=== PATIENT | female | born 1965 | race Hispanic/Latino ===

== ENCOUNTER 2020-01-29 18:39 | Inpatient (IN) | payer BC, OTHER ==
[~2020-01-29 18:39] MED LIST: Iopamidol 370 76% 100 ML VIAL ONE
[2020-01-29 19:32] LABS: #Basophils 0.1 thou/uL (0.0-0.2); #Eosinphils 0.1 thou/uL (0.0-0.7); #Lymphocytes 2.1 thou/uL (1.20-3.40); #Monocytes 0.6 thou/uL (0.11-0.59); #Neutrophils 5.1 thou/uL (1.40-6.50); %Basophils 0.8 % (0.0-1.0); %Monocytes 7.9 % (0.0-10.0); %Neutrophils 64.3 % (42.0-75.0); Hemoglobin 13.6 g/dL (12.0-16.0); Mean Corpuscular HGB CONC 33.9 g/dL (32.0-36.0); Mean Corpuscular Hemoglobin 29.8 pg (27.0-31.0); Mean Corpuscular Volume 88.1 fL (78.0-98.0); Mean Platelet Volume 6.8 fL (7.4-10.4); Platelet Count 317 thou/uL (130-400); RBC Distribution Width 12.8 % (11.5-14.5); Red Blood Cell (RBC) Count 4.56 mill/uL (4.20-5.40); White Blood Cell (WBC) Count 7.9 thou/uL (4.8-10.8)
[2020-01-29 19:56] LABS: ALT (SGPT) 105 U/L (8-55); AST (SGOT) 67 U/L (5-34); Alkaline Phosphatase 84 U/L (40-110); Anion Gap 18 mmol/L (10-20); BUN (Urea Nitrogen) 15 mg/dL (9.8-20.1); Bilirubin, Total 0.5 mg/dL (0.2-1.2); CK (CPK) 130 U/L (29-168); Calc. Creatinine Clearance 0 mL/min (70-130); Carbon Dioxide 22 mmol/L (22-29); Chloride 101 mmol/L (98-107); Estimated GFR-MDRD 77; Globulin 2.8 g/dL (2.4-3.5); Glucose 112 mg/dL (70-105); Potassium 3.5 mmol/L (3.5-5.1); Protein, Total 6.8 g/dL (6.0-8.3); Sodium 137 mmol/L (136-145)
[2020-01-29] MEDS ORDERED: Fentanyl 100 MCG/2 ML VIAL ONE (20:45)
[2020-01-29] MEDS ORDERED: Aspirin Chewable 81 MG TAB ONE (20:47)
[2020-01-29] MEDS ORDERED: Ondansetron PF 4 MG/2 ML Vial ONE (20:56)
--- NOTE | 2020-01-29 21:36 | CT ---
CT BRAIN WITHOUT CONTRAST CT ANGIOGRAM GREAT VESSELS NECK WITH IV CONTRAST AND 3D MIP RECONSTRUCTIONS CT ANGIOGRAM BRAIN WITH IV CONTRAST AND 3D MIP RECONSTRUCTIONS 01/29/20 PROVIDED CLINICAL HISTORY: Difficulty speaking, right sided facial droop and right sided weakness. FINDINGS: No comparisons. The ventricular system appears normal in size and morphology. There is no evidence for intracranial h emorrhage or mass effect. Focal areas of loss of arana-white differentiation and white matter hypodens ity are seen involving the anterior distribution of the right MCA. Arana-white differentiation appears otherwise preserved. The extracranial soft tissues and osseous structures appear unremarkable. There is a common origin of the innominate and left common carotid arteries. There is occlusion of th e right internal carotid artery throughout its cervical and petrous segments. There is some contrast present within the cavernous segment and it is normally opacified in its supraclinoid segment. The gr eat vessels of the neck demonstrate an otherwise unremarkable CT angiographic appearance. The intracr anial circulation demonstrates an otherwise normal CT angiographic appearance. IMPRESSION: 1. No evidence for intracranial hemorrhage or mass effect. 2. Anterior right MCA distribution infarctions. 3. Occlusion of the right ICA as described. 4. Findings discussed with Dr. Hearn 8:42 p.m., 01/29/20. Code CR POS: JAMIE
[2020-01-29] MEDS ORDERED: hydrALAZINE 20 MG/ML VIAL SLOW IVP PRN (22:42)
[2020-01-29] MEDS ORDERED: Labetalol HCl 100 MG/20 ML VIAL SLOW IVP PRN (22:42)
[2020-01-29] MEDS ORDERED: HumaLOG 300 UNITS/3 ML VIAL SC PRN (22:43)
[2020-01-29] MEDS ORDERED: Dextrose 5% in Water 1,000 ML IV PRN (22:43)
[2020-01-29] MEDS ORDERED: Dextrose 50% Abboject 50 ML SYRINGE SLOW IVP PRN (22:43)
[2020-01-29] MEDS ORDERED: Promethazine HCl 12.5 MG in Sodium Chloride 0.9% 50 ML IVPB PRN (22:44)
[2020-01-29] MEDS ORDERED: Ondansetron PF 4 MG/2 ML Vial IVP PRN (22:44)
[2020-01-29] MEDS ORDERED: Acetaminophen 325 MG TAB PO PRN (22:44)
--- NOTE | 2020-01-29 22:45 | PDOC.HHP ---
Hospitalist HPI - History of Present Illness Facial droop History of Present Illness: Patient is a 55 year old female with PMH HTN, lupus who presents to ED for R facial droop and slurred speech which began approximately 30 hours ago. Patient developed sudden R sided facial droop and slurred speech yesterday mid-day. She has been having difficulty speaking, denies numbness, seizure. She reports some peripheral L eye visual defects. In ED, NIHSS 3, EKG NSR, CTA imaging concerning for acute ischemic stroke in R MCA distribution, unfortunately patient out of tPA window, given aspirin and admitted for further stroke workup and care. Hospitalist ROS - Review of Systems Constitutional: denies: fever, chills, sweats, weakness, malaise, other Eyes: denies: pain, vision change, conjunctivae inflammation, eyelid in flammation, redness, other ENT: denies: ear pain, ear discharge, nose pain, nose discharge, nose congestion, mouth pain, mouth swelling, throat pain, throat swelling, other Respiratory: denies: cough, dry, shortness of breath, hemoptysis, SOB with ex certion, pleuritic pain, sputum, wheezing, other Cardiovascular: denies: chest pain, palpitations, orthopnea, paroxysmal noc. dyspnea, edema, light headedness, other Gastrointestinal: denies: nausea, vomiting, abdominal pain, diarrhea, constipation, melena, hematochezia, other Genitourinary: denies: dysuria, frequency, incontinence, hematuria, retention, other Musculoskeletal: denies: neck pain, shoulder pain, arm pain, back pain, hand pain, leg pain, foot pain, other Skin: denies: rash, lesions, michael, bruising, other Neurological: reports: weakness (per HPI), change in speech. denies: numbness, incoordination, confusion, seizures, other All other systems reviewed; all pertinent +/- noted in HPI/Subj - Medication Medications: lisinopril TABLET : Strength - 10 mg : ORAL Patient Dose: 5 mg Oral once a day. pantoprazole oral TABLET, DELAYED RELEASE (ENTERIC COATED) : Strength - 20 mg : ORAL Patient Dose: 40 mg Oral once a day. Hospitalist History - Past Medical History Other Medical History: HTN lupus - Past Surgical History Past Surgical History: reports: no pertinent history - Family History Family History: reports: no pertinent history - Social History Smoking Status: Never smoker Alcohol: reports: None Drugs: reports: none - Exam General Appearance: NAD, awake alert Eye: PERRL, anicteric sclera ENT: normocephalic atraumatic, no oropharyngeal lesions, moist mucosa Neck: supple, symmetric, no JVD, no thyromegaly, no lymphadenopathy, no carotid bruit Heart: RRR, no murmur, no gallops, no rubs, normal peripheral pulses Respiratory: CTAB, no wheezes, no rales, no ronchi, normal chest expansion, no tachypnea, normal percussion Gastrointestinal: soft, non-tender, non-distended, normal bowel sounds, no palpable masses, no hepatomegaly, no splenomegaly, no bruit Extremities: no cyanosis, no clubbing, no edema Skin: normal turgor, no lesions, no rashes Neurological: facial droop, speech deficit Neurological - other findings: reduced muscle strength 4/5 LUE, R facial droop, sensation intact Musculoskeletal: normal tone, normal strength, no muscle wasting Psychiatric: normal affect, normal behavior, A&O x 3 Hospitalist Results - Labs Result Diagrams: 01/29/20 19:25 01/29/20 19:25 Lab results: WBC 7.9 thou/uL (4.8-10.8) 01/29/20 19:25 Hgb 13.6 g/dL (12.0-16.0) 01/29/20 19:25 Hct 40.2 % (36.0-47.0) 01/29/20 19:25 MCV 88.1 fL (78.0-98.0) 01/29/20 19:25 Plt Count 317 thou/uL (130-400) 01/29/20 19:25 Neutrophils % 64.3 % (42.0-75.0) 01/29/20 19:25 Sodium 137 mmol/L (136-145) 01/29/20 19:25 Potassium 3.5 mmol/L (3.5-5.1) 01/29/20 19:25 Chloride 101 mmol/L (98-107) 01/29/20 19:25 Carbon Dioxide 22 mmol/L (22-29) 01/29/20 19:25 BUN 15 mg/dL (9.8-20.1) 01/29/20 19:25 Creatinine 0.77 mg/dL (0.6-1.1) 01/29/20 19:25 Glucose 112 mg/dL (70-105) H 01/29/20 19:25 Calcium 9.0 mg/dL (7.8-10.44) 01/29/20 19:25 Total Bilirubin 0.5 mg/dL (0.2-1.2) 01/29/20 19:25 AST 67 U/L (5-34) H 01/29/20 19:25 ALT 105 U/L (8-55) H 01/29/20 19:25 Alkaline Phosphatase 84 U/L (40-110) 01/29/20 19:25 Creatine Kinase 130 U/L (29-168) 01/29/20 19:25 Troponin I Less than 0.010 ng/mL (< 0.028) 01/29/20 19:25 Serum Total Protein 6.8 g/dL (6.0-8.3) 01/29/20 19:25 Albumin 4.0 g/dL (3.5-5.0) 01/29/20 19:25 Additional comment: VITAL SIGNS Wed Jan 29, 2020 21:56 CARLITO Mcclure, Yola Santamaria BP: 161/73 Pulse: 98 Resp: 18 Temp: 98.5 (Oral) Pain: 5 O2 sat: 98 on (Room Air) Time: 01/29/2020 21:56. labs, imaging reports, ED documents reviewed. - EKG Interpretation EKG: NSR 99 bpm, no acute ST changes or AVB. Hospitalist H&P A/P - Plan Plan: Patient is a 55 year old female with PMH HTN, lupus who presents to ED for R facial droop and slurred speech which began approximately 30 hours prior to arrival. # acute R MCA ischemic stroke Patient developed sudden R sided facial droop and slurred speech yesterday mid- day. She reports some peripheral L eye visual defects. In ED, NIHSS 3, EKG NSR, CTA imaging concerning for acute ischemic stroke in R MCA distribution, unfortunately patient out of tPA window, given aspirin and admitted for further stroke workup and care. exam concerning for some LUE mild weakness but still 4/5 strength. - admit to stroke unit - stroke order set, permissive HTN, consult neurology/stroke team, ASA, statin # R ICA occlusion - consult vascular surgery, antiplatelet as above # HTN - permissive HTN # SLE - outpatient follow up recommended DVT/GI ppx
[2020-01-30 00:13] VITALS: BMI 35.1
[2020-01-30 04:57] LABS: #Eosinphils 0.1 thou/uL (0.0-0.7); #Lymphocytes 1.9 thou/uL (1.20-3.40); #Monocytes 0.5 thou/uL (0.11-0.59); #Neutrophils 2.7 thou/uL (1.40-6.50); %Basophils 0.5 % (0.0-1.0); %Eosinophils 1.2 % (0.0-10.0); %Monocytes 9.2 % (0.0-10.0); %Neutrophils 52.2 % (42.0-75.0); Hemoglobin 12.8 g/dL (12.0-16.0); Mean Corpuscular HGB CONC 32.3 g/dL (32.0-36.0); Mean Corpuscular Hemoglobin 28.1 pg (27.0-31.0); Mean Corpuscular Volume 86.9 fL (78.0-98.0); Mean Platelet Volume 7.1 fL (7.4-10.4); Platelet Count 322 thou/uL (130-400); RBC Distribution Width 12.9 % (11.5-14.5); Red Blood Cell (RBC) Count 4.57 mill/uL (4.20-5.40); White Blood Cell (WBC) Count 5.2 thou/uL (4.8-10.8)
[2020-01-30 05:11] LABS: Hemoglobin A1c 6.4 % (4.0-6.0)
[2020-01-30 05:28] LABS: Anion Gap 15 mmol/L (10-20); BUN (Urea Nitrogen) 12 mg/dL (9.8-20.1); Calc. Creatinine Clearance 119 mL/min (70-130); Carbon Dioxide 23 mmol/L (22-29); Cardiac Risk 4.4 (Less than 4.5); Chloride 104 mmol/L (98-107); Cholesterol 219 mg/dl (< 200 Desired); Estimated GFR-MDRD 83; Glucose 114 mg/dL (70-105); HDL Cholesterol 50 mg/dL (>60 Neg Risk); LDL Cholesterol, Calculated 144 mg/dL; Potassium 3.6 mmol/L (3.5-5.1); Sodium 138 mmol/L (136-145); Triglycerides 126 mg/dL (Less than 150)
--- NOTE | 2020-01-30 06:57 | CON ---
DATE OF CONSULTATION: HISTORY OF PRESENT ILLNESS: This is a 55-year-old with a history of hypertension who has a 1 to 2-day history of initially headache on the right side, and then some facial asymmetry and slurred speech yesterday. Finally, was brought to the hospital. The daughter states that she was able to ambulate, used her left arm, although she appeared to be a little unsteady on her feet. Speech was somewhat difficult to understand. In the emergency room, she was found to have occlusion of her right internal carotid artery at the carotid bifurcation with no significant filling distally. She had evidence for anterior right middle cerebral artery distribution infarction. There was no significant atherosclerotic disease identified in the aortic arch or blood vessels of her cervical study. Cardiovascular risk factors include hypertension. She has no history of diabetes. Her blood sugars have been minimally elevated and her A1c on admission was slightly elevated at 6.4. She had a cholesterol of 219 with an HDL of 50. She is a nonsmoker. PAST SURGICAL HISTORY: Negative. PHYSICAL EXAMINATION: VITAL SIGNS: Height 5 feet 2 inches, weight 192, and BMI 35. GENERAL: Resting comfortably in bed, nonverbal during my evaluation as the daughter did most of the talking. NECK: She had no carotid bruits. CARDIAC: Regular rate and rhythm. No murmurs. LUNGS: Clear to auscultation. EXTREMITIES: Without edema with palpable pedal pulses. She has a good dock grader in her left arm and minimal weakness on elevation of her left leg from the bed. She has no obvious facial asymmetry this morning. At this time, she has a right internal carotid artery occlusion with minimal symptoms from her stroke presently. Given the fact that she has had what appears to be a rather limited stroke makes me suspicious, this was a slowly progressive occlusion over time allowing for collateral development rather than being an embolic stroke from the heart. In any event, a cardiac echo is needed to rule out a possible cardiac source such as myxoma and her left ventricular abnormalities. Her resting EKG is consistent with possible old inferior or anterior infarct. She probably would benefit from the addition of statin therapy to her home medications and this has been started. She is now on aspirin as well. I have had a long discussion this morning with the daughter, who is concerned that nothing can be done for her right internal carotid artery occlusion. I tried to explain several times this morning that once it occludes completely, there is no intervention to be done at this stage, and that the risk of future stroke on that side is quite low since her occlusion cannot get any worse than it is. The goals here forward should be risk factor control to minimize atherosclerotic disease in her left carotid artery, which at this time is clean as well as cardiac echo to evaluate any possible cardiac source for this stroke. Carotid ultrasound followup in a couple of years is probably warranted to track the left carotid artery. Job ID: [id number]
--- NOTE | 2020-01-30 08:58 | MRI ---
EXAM: MRI Brain WO Con PROVIDED CLINICAL HISTORY: Right-sided weakness. Stroke. COMPARISON: CT head and CTA head on 01/29/2020 FINDINGS: There is an area of restricted diffusion seen in the right anterior frontal lobe in the anterior divi laney of the right MCA compatible with acute infarction. No other areas of restricted diffusion are seen to suggest additional areas of acute infarction. Mild sulcal effacement is present in the region of the infarction. There are scattered punctate areas of increased FLAIR and T2-weighted signal intensity in the periven tricular white matter which are nonspecific but likely reflective of mild chronic small vessel ischemic changes. Septum pellucidum and third ventricle are on the midline. The ventricular system is normal in size, s hape, and position. There is absence of the right internal carotid artery flow-void compatible with occlusion of the righ t internal carotid artery which was seen on recent CTA exam. Incidentally noted is evidence of a partially empty sella turcica. Minimal mucosal thickening is seen in each sphenoid sinus and a few ethmoidal air cells. Orbits and r emainder of the skull base demonstrate a normal MRI appearance. IMPRESSION: 1. Acute anterior division right MCA infarction. 2. Occlusion of the right internal carotid artery. 3. Mild chronic small vessel ischemic changes.
[2020-01-30] MEDS ORDERED: Famotidine 20 MG TAB PO SCH (09:00)
[2020-01-30] MEDS ORDERED: Aspirin 81 mg Enteric Coated Tablet PO SCH (09:00)
[2020-01-30 12:10] LABS: SARS-CoV-2 MS2 Positive; SARS-CoV-2 N Gene Negative; SARS-CoV-2 S Gene Negative; SARS-CoV-2 by NAA Not Detected (NotDetected); SARS-CoV-2 orf1ab Negative
[2020-01-30] MEDS ORDERED: Pantoprazole 40 MG VIAL IVP SCH (12:15)
[2020-01-30] MEDS ORDERED: Aspirin 300 MG Suppository PR SCH (12:15)
[2020-01-30] MEDS: Aspirin 325 mg Enteric Coated Tablet PO SCH (12:19)
[2020-01-30] MEDS: Enoxaparin Sodium 40 MG/0.4 ML SYRINGE SC SCH (12:19)
--- NOTE | 2020-01-30 12:38 | PDOC.HOSPP ---
- Subjective Encounter Date: 01/30/20 Encounter Time: 12:36 Subjective: pt up in bed no complains. Daughter at bedside. - Objective Vital Signs & Weight: Vital Signs (12 hours) Temp Pulse Pulse Pulse Resp BP BP 01/30/20 11:36 97.8 F 98 16 01/30/20 10:44 101 H 104 H 141/83 H 146/83 H 01/30/20 09:29 103 H 123/75 147/69 H 01/30/20 08:04 97.9 F 94 16 01/30/20 03:12 98.1 F 84 14 BP Pulse Ox 01/30/20 11:36 141/68 H 96 01/30/20 10:44 01/30/20 09:29 01/30/20 08:04 141/79 H 98 01/30/20 03:12 122/77 98 Weight Weight 192 lb 0.362 oz Result Diagrams: 01/30/20 04:30 01/30/20 04:30 Additional Labs: Accuchecks 01/30/20 05:39 POC Glucose 102 H Hospitalist ROS - Review of Systems Cardiovascular: denies: chest pain, palpitations, orthopnea, paroxysmal noc. dyspnea, edema, light headedness, other Gastrointestinal: denies: nausea, vomiting, abdominal pain, diarrhea, constipation, melena, hematochezia, other - Medication Medications: Active Medications Generic Name Dose Route Start Last Admin Trade Name Freq PRN Reason Stop Dose Admin Aspirin 325 mg 01/30/20 09:00 01/30/20 12:19 Aspirin 325 Mg Enteric Coated Tablet PO Not Given DAILY [facility] Enoxaparin Sodium 40 mg 01/30/20 09:00 01/30/20 12:19 Enoxaparin Sodium 40 Mg/0.4 Ml Syringe SC Not Given 0900 [facility] - Exam Neck: negative: supple, symmetric, no JVD, no thyromegaly, no lymphadenopathy, no carotid bruit, JVD Heart: negative: RRR, no murmur, no gallops, no rubs, normal peripheral pulses, irregular, diminshed peripheral pulses, murmur present, II/IV, III/IV Respiratory: negative: CTAB, no wheezes, no rales, no ronchi, normal chest expansion, no tachypnea, normal percussion, rales, rhonchi, tachypneic, wheezes Gastrointestinal: negative: soft, non-tender, non-distended, normal bowel sounds, no palpable masses, no hepatomegaly, no splenomegaly, no bruit, no guarding, no rigidity, tender to palpation, distended, diminished bowl sounds, voluntary guarding Extremities: 1+ LE edema Hosp A/P (1) Stroke Code(s): I63.9 - CEREBRAL INFARCTION, UNSPECIFIED Status: Acute (2) HTN (hypertension) Code(s): I10 - ESSENTIAL (PRIMARY) HYPERTENSION Status: Acute (3) Obesity Code(s): E66.9 - OBESITY, UNSPECIFIED Status: Acute - Plan pt on asa/statin. echo pending. occlusion of right carotid artery, no intervention pt's daughter updated. right mca stroke out of window for tpa.
--- NOTE | 2020-01-30 13:10 | CON ---
NEUROLOGY CONSULTATION DATE OF CONSULTATION: 01/30/2020 REASON FOR CONSULTATION: Altered mental status/stroke. HISTORY OF PRESENT ILLNESS: Ms. Hans Ramos is a 55-year-old female with medical history significant for hypertension and lupus, presented to the emergency room with right facial droop, slurred speech, and mild confusion, which started around 30 hours ago on 01/29/2020. The patient speaks Samoan. The history is taken with the help of the daughter. According to the daughter, she developed a sudden onset right-sided facial droop and slurred speech around mid day on 01/28/2020. She waited for the deficits to resolve, but she continued to have persistent deficits and having difficulty in speaking, so she decided to come to the emergency room for further evaluation. The patient also noted peripheral left eye visual deficit. In the emergency room, NIH Stroke Scale was 3. EKG showed normal sinus rhythm. CTA of the head showed occlusion of the right internal carotid artery and acute ischemic stroke in the right MCA distribution. She was given aspirin and admitted for further stroke workup. REVIEW OF SYSTEMS: Constitutional: denies: fever, chills, sweats, weakness, malaise, other Eyes: denies: pain, vision change, conjunctivae inflammation, eyelid inflammation, redness, other ENT: denies: ear pain, ear discharge, nose pain, nose discharge, nose congestion, mouth pain, mouth swelling, throat pain, throat swelling, other Respiratory: denies: cough, dry, shortness of breath, hemoptysis, SOB with excertion, pleuritic pain, sputum, wheezing, other Cardiovascular: denies: chest pain, palpitations, orthopnea, paroxysmal noc. dyspnea, edema, light headedness, other Gastrointestinal: denies: nausea, vomiting, abdominal pain, diarrhea, constipation, melena, hematochezia, other Genitourinary: denies: dysuria, frequency, incontinence, hematuria, retention, other Musculoskeletal: denies: neck pain, shoulder pain, arm pain, back pain, hand pain, leg pain, foot pain, other Skin: denies: rash, lesions, michael, bruising, other Neurological: reports: weakness (per HPI), change in speech. denies: numbness, incoordination, confusion, seizures, other All other systems reviewed; all pertinent +/- noted in HPI/Subj - Objective Vital Signs & Weight: Vital Signs (12 hours) Temp Pulse Pulse Pulse Resp BP BP 01/30/20 11:36 97.8 F 98 16 01/30/20 10:44 101 H 104 H 141/83 H 146/83 H 01/30/20 09:29 103 H 123/75 147/69 H 01/30/20 08:04 97.9 F 94 16 01/30/20 03:12 98.1 F 84 14 BP Pulse Ox 01/30/20 11:36 141/68 H 96 01/30/20 10:44 01/30/20 09:29 01/30/20 08:04 141/79 H 98 01/30/20 03:12 122/77 98 Weight Weight 192 lb 0.362 oz Additional Labs: Accuchecks 01/30/20 05:39 POC Glucose 102 H PHYSICAL EXAMINATION: Examination conducted with the help of the daughter who acted as an film processing shift supervisor since the patient speaks Samoan only. General Appearance: NAD, awake alert Eye: PERRL, anicteric sclera ENT: normocephalic atraumatic, no oropharyngeal lesions, moist mucosa Neck: supple, symmetric, no JVD, no thyromegaly, no lymphadenopathy, no carotid bruit Heart: RRR, no murmur, no gallops, no rubs, normal peripheral pulses Respiratory: CTAB, no wheezes, no rales, no ronchi, normal chest expansion, no tachypnea, normal percussion Gastrointestinal: soft, non-tender, non-distended, normal bowel sounds, no palpable masses, no hepatomegaly, no splenomegaly, no bruit Extremities: no cyanosis, no clubbing, no edema Skin: normal turgor, no lesions, no rashes Neurological -Mental status; the patient is alert and oriented to person, place, and time. The patient does have receptive aphasia and dysarthria. Follows commands intermittently, but per daughter, she has problem carrying a normal conversation and seems to be confused and forgetful at times. Cranial nerves 2 through 12 intact except 7 with right facial droop and 10 with dysarthria. Motor; muscle tone and bulk are normal. Strength, 4/5 in the left upper extremity and wrist 5/5. Sensory intact. Cerebellar, finger-nose testing slow on the left because of the weakness. Gait deferred due to patient's safety reasons. MEDICATIONS: 1. Lisinopril 5 mg once daily. 2. Pantoprazole 40 mg once a day. PAST MEDICAL HISTORY: 1. Hypertension. 2. Lupus. PAST SURGICAL HISTORY: No significant past surgical history. FAMILY HISTORY: No family history of stroke. SOCIAL HISTORY: Denies smoking, alcohol, or illegal drug use. DATA REVIEWED: I reviewed the labs, which were essentially unremarkable. EKG showed normal sinus rhythm. Head CT showed acute right MCA infarct. Lab results: WBC 7.9 thou/uL (4.8-10.8) 01/29/20 19:25 Hgb 13.6 g/dL (12.0-16.0) 01/29/20 19:25 Hct 40.2 % (36.0-47.0) 01/29/20 19:25 MCV 88.1 fL (78.0-98.0) 01/29/20 19:25 Plt Count 317 thou/uL (130-400) 01/29/20 19:25 Neutrophils % 64.3 % (42.0-75.0) 01/29/20 19:25 Sodium 137 mmol/L (136-145) 01/29/20 19:25 Potassium 3.5 mmol/L (3.5-5.1) 01/29/20 19:25 Chloride 101 mmol/L (98-107) 01/29/20 19:25 Carbon Dioxide 22 mmol/L (22-29) 01/29/20 19:25 BUN 15 mg/dL (9.8-20.1) 01/29/20 19:25 Creatinine 0.77 mg/dL (0.6-1.1) 01/29/20 19:25 Glucose 112 mg/dL (70-105) H 01/29/20 19:25 Calcium 9.0 mg/dL (7.8-10.44) 01/29/20 19:25 Total Bilirubin 0.5 mg/dL (0.2-1.2) 01/29/20 19:25 AST 67 U/L (5-34) H 01/29/20 19:25 ALT 105 U/L (8-55) H 01/29/20 19:25 Alkaline Phosphatase 84 U/L (40-110) 01/29/20 19:25 Creatine Kinase 130 U/L (29-168) 01/29/20 19:25 Troponin I Less than 0.010 ng/mL (< 0.028) 01/29/20 19:25 Serum Total Protein 6.8 g/dL (6.0-8.3) 01/29/20 19:25 Albumin 4.0 g/dL (3.5-5.0) 01/29/20 19:25 ASSESSMENT AND PLAN: (1) Stroke Code(s): I63.9 - CEREBRAL INFARCTION, UNSPECIFIED Status: Acute (2) HTN (hypertension) Code(s): I10 - ESSENTIAL (PRIMARY) HYPERTENSION Status: Acute (3) Obesity Code(s): E66.9 - OBESITY, UNSPECIFIED Status: Acute Ms. Danette Ramos is a 55-year-old female with medical history significant for hypertension and lupus, presented to the emergency room 30 hours post onset of symptoms of right facial droop, slurred speech, and left homonymous hemianopia. MRI of the brain reviewed and was consistent with acute infarction in the right MCA territory. CT angiogram of the neck showed right ICA occlusion. Vascular Surgery consulted. No surgical intervention. Continue anti-platelet as recommended by Vascular Surgery. Continue aspirin and high-intensity statin for secondary stroke prevention. Telemetry to rule out arrhythmias. Echocardiogram to evaluate for left ventricular ejection fraction. EEG to evaluate for intermittent confusion since the onset of symptoms to rule out underlying seizure activity. Neuro checks every 4 hours. Continue home medications. PT/OT/Speech. Continue medical management per primary team. DVT prophylaxis. We will continue to follow. Thank you for the consult. Job ID: [id number] MTDD
--- NOTE | 2020-01-30 15:21 | RAD ---
EXAM: XR Ba Swallow W/Speech Therap PROVIDED CLINICAL HISTORY: Dysphagia following cerebral infarction. Dysphagia, unspecified. COMPARISON: None FINDINGS: This examination was performed in conjunction with speech pathology. Varying consistencies of barium were administered during the exam. Patient demonstrates a few episodes of premature spill of contrast into the vallecula prior to initiation of the swallowing mechanism. Episode of penetration w as seen with nectar consistency by straw. A few episodes of minimal aspiration were present within liquid barium without appropriate cough reflex elicited. Fluoroscopy: Dose-0.71 moss centimeter squared Time-1 minute IMPRESSION: Minimal aspiration with thin liquid barium.
[2020-01-30] MEDS ORDERED: Atorvastatin Calcium 40 MG TAB PO SCH (21:00)
[2020-01-31] MEDS: Aspirin 325 mg Enteric Coated Tablet PO SCH (08:51)
[2020-01-31] MEDS: Enoxaparin Sodium 40 MG/0.4 ML SYRINGE SC SCH (08:51)
[2020-01-31] MEDS ORDERED: Lisinopril/Hydrochlorothiazide 20/25 mg Tablet PO SCH ×2 (10:35→10:45)
[2020-01-31] MEDS ORDERED: Iopamidol-370 76% 500 ML 1 ML ONE (11:35)
--- NOTE | 2020-01-31 13:07 | PDOC.NEUPN ---
- Subjective Encounter Date: 01/31/20 Subjective: Patient more awake today and denies any new complaints. EEG negative and MRI brain positive for acute infarction. - Objective Vital Signs & Weight: Vital Signs (12 hours) Temp Pulse Pulse Pulse Pulse Resp BP 01/31/20 11:45 98.8 F 108 H 20 01/31/20 09:44 103 H 110 H 105 H 202/91 H 01/31/20 09:00 01/31/20 08:00 99.3 F 90 14 01/31/20 03:46 99.0 F 114 H 18 BP BP BP Pulse Ox 01/31/20 11:45 180/83 H 95 01/31/20 09:44 197/91 H 201/102 H 01/31/20 09:00 192/93 H 01/31/20 08:00 155/72 H 95 01/31/20 03:46 125/72 94 L Weight Weight 192 lb 0.362 oz I&O: 01/30/20 01/31/20 02/01/20 06:59 06:59 06:59 Intake Total 30 Balance 30 Result Diagrams: 01/30/20 04:30 01/30/20 04:30 Additional Labs: Accuchecks 01/31/20 01/30/20 01/30/20 05:48 20:24 16:43 POC Glucose 135 H 124 H 105 H Radiology Reviewed by me: Yes EKG Reviewed by me: Yes ROS - Review of Systems Constitutional: denies: fever, chills, sweats, weakness, malaise, other Eyes: denies: pain, vision change, conjunctivae inflammation, eyelid inflammation, redness, other ENT: denies: ear pain, ear discharge, nose pain, nose discharge, nose congestion, mouth pain, mouth swelling, throat pain, throat swelling, other Respiratory: denies: cough, dry, shortness of breath, hemoptysis, SOB with excertion, pleuritic pain, sputum, wheezing, other Cardiovascular: reports: no pertinent history Gastrointestinal: denies: nausea, vomiting, abdominal pain, diarrhea, cons tipation, melena, hematochezia, other Genitourinary: denies: dysuria, frequency, incontinence, hematuria, retention, other Skin: denies: rash, lesions, michael, bruising, other Neurological: reports: weakness, numbness, change in speech - Medication Medications: Active Medications Generic Name Dose Route Start Last Admin Trade Name Robertq PRN Reason Stop Dose Admin Acetaminophen 650 mg 01/29/20 22:44 01/30/20 19:23 Acetaminophen 325 Mg Tab PO 650 mg Q4H PRN Administration Headache/Fever/Mild Pain (1-3) Aspirin 325 mg 01/30/20 09:00 01/31/20 08:51 Aspirin 325 Mg Enteric Coated Tablet PO 325 mg DAILY VERONICA Administration Atorvastatin Calcium 40 mg 01/30/20 21:00 01/30/20 21:26 Atorvastatin Calcium 40 Mg Tab PO 40 mg HS VERONICA Administration Enoxaparin Sodium 40 mg 01/30/20 09:00 01/31/20 08:51 Enoxaparin Sodium 40 Mg/0.4 Ml Syringe SC 40 mg 09 VERONICA Administration Lisinopril/HCTZ 1 tab 01/31/20 10:45 01/31/20 10:58 Lisinopril/Hydrochlorothiazide 20/25 Mg Tablet PO 01/31/20 14:00 1 tab NOW VERONICA Administration Ondansetron HCl 4 mg 01/29/20 22:44 01/30/20 19:23 Ondansetron Pf 4 Mg/2 Ml Vial IVP 4 mg Q6H PRN Administration Nausea/Vomiting use 1st Pantoprazole Sodium 40 mg 01/31/20 09:00 01/31/20 08:50 Pantoprazole 40 Mg Tab PO 40 mg DAILY VERONICA Administration - Exam General Appearance: awake alert Eye: PERRL, anicteric sclera ENT: normocephalic atraumatic Neck: supple Respiratory: CTAB Cardiovascular: RRR, no murmur Gastrointestinal: soft, non-tender Extremities: no cyanosis Skin: normal turgor Neurological: no new deficit Musculoskeletal: no muscle wasting PSYCH: normal affect, normal behavior, A&O x 3 Results - Labs Result Diagrams: 01/30/20 04:30 01/30/20 04:30 Lab results: WBC 5.2 thou/uL (4.8-10.8) 01/30/20 04:30 Hgb 12.8 g/dL (12.0-16.0) 01/30/20 04:30 Hct 39.7 % (36.0-47.0) 01/30/20 04:30 MCV 86.9 fL (78.0-98.0) 01/30/20 04:30 Plt Count 322 thou/uL (130-400) 01/30/20 04:30 Neutrophils % 52.2 % (42.0-75.0) 01/30/20 04:30 Sodium 138 mmol/L (136-145) 01/30/20 04:30 Potassium 3.6 mmol/L (3.5-5.1) 01/30/20 04:30 Chloride 104 mmol/L (98-107) 01/30/20 04:30 Carbon Dioxide 23 mmol/L (22-29) 01/30/20 04:30 BUN 12 mg/dL (9.8-20.1) 01/30/20 04:30 Creatinine 0.72 mg/dL (0.6-1.1) 01/30/20 04:30 Glucose 114 mg/dL (70-105) H 01/30/20 04:30 Calcium 9.0 mg/dL (7.8-10.44) 01/30/20 04:30 Total Bilirubin 0.5 mg/dL (0.2-1.2) 01/29/20 19:25 AST 67 U/L (5-34) H 01/29/20 19:25 ALT 105 U/L (8-55) H 01/29/20 19:25 Alkaline Phosphatase 84 U/L (40-110) 01/29/20 19:25 Creatine Kinase 130 U/L (29-168) 01/29/20 19:25 Troponin I Less than 0.010 ng/mL (< 0.028) 01/29/20 19:25 Serum Total Protein 6.8 g/dL (6.0-8.3) 01/29/20 19:25 Albumin 4.0 g/dL (3.5-5.0) 01/29/20 19:25 - Radiology Interpretation MRI - head Status: image reviewed by me, report reviewed by me Additional Comment: MRI brain consistent with acute infarction in the right MCA territory. PN A/P (1) Stroke Code(s): I63.9 - CEREBRAL INFARCTION, UNSPECIFIED Status: Acute (2) HTN (hypertension) Code(s): I10 - ESSENTIAL (PRIMARY) HYPERTENSION Status: Acute (3) AMS (altered mental status) Code(s): R41.82 - ALTERED MENTAL STATUS, UNSPECIFIED Status: Acute (4) Obesity Code(s): E66.9 - OBESITY, UNSPECIFIED Status: Acute - Plan 5-year-old female with a history significant for hypertension and obesity presented with acute onset left-sided weakness with speech deficit which is now improving. The patient also complained of dysphagia. MRI of the brain reviewed which was consistent with acute infarction in the right MCA territory. CTA of the neck showed right internal carotid artery occlusion 100%. Vascular surgery consult completed and advised no further intervention. Neurochecks every 4 hours. Permissive control of blood pressure at this time. Strict control of blood glucose. Altered mental status resolved most likely secondary to acute infarction. EEG reviewed and was negative for seizure activity. Continue aspirin and high intensity statin for secondary stroke prevention. 2D echo showed ejection fraction 60 to 65%. No thrombus or PFO. Continue telemetry. Continue home medications. PT/OT/speech. Barium swallow study completed. Minimal aspiration and speech is on board. Continue medical management per primary team. Plan discussed with the patient, the primary attending Dr. Kee and during MDR rounds.
--- NOTE | 2020-01-31 13:28 | CT ---
CTA OF THE CHEST AND ABDOMEN UTILIZING AN AORTIC DISSECTION PROTOCOL AND 3-D REFORMATTED IMAGING INDICATION: 55-year-old female with history of unequal blood pressure within both arms COMPARISON: None FINDINGS: Aorta: No acute aortic stenosis, occlusion or aneurysmal formation demonstrated. There are mild vascu lar calcifications seen involving the visualized vasculature. Artifact from contrast within the left subclavian and left axillary vein limits visualization of the left subclavian artery and left axillary artery. Central pulmonary artery: No central pulmonary embolus demonstrated. Additional thorax findings: There are mild subsegmental volume loss within both lower lobes. No enlar ged lymph nodes are evident. There are small lateral hernia. Additional abdominal findings: There is diffuse fatty liver. There is cholelithiasis. Adrenal glands and spleen are unremarkable. Both kidneys are normal appearing. Small and large bowel appear within normal limits. There is mild n arrowing involving the origin of the celiac artery. There is mild narrowing involving the origin of the right renal artery. Left renal artery appears patent. The SMA and AARON appear patent. Osseous structures: No acute osseous abnormality. IMPRESSION: 1. No appreciable aortic stenosis, occlusion or aneurysmal formation demonstrated. 2. Mild narrowing involving the origin of the celiac and proximal right renal artery. 3. Fatty liver and cholelithiasis
[2020-01-31 18:42] VITALS: BP 132/77; TEMP 99.5
[2020-02-01] MEDS ORDERED: Lisinopril/Hydrochlorothiazide 20/25 mg Tablet PO SCH (09:00)
--- NOTE | 2020-02-03 06:58 | DIS ---
DATE OF ADMISSION: 01/29/2020 DATE OF DISCHARGE: 01/31/2020 DISCHARGE DIAGNOSES: As of the followin. Slurred speech, acute stroke. 2. Hypertension. 3. Obesity. 4. Borderline diabetes with hemoglobin A1c of 6.4. HOSPITAL COURSE: The patient is a 55-year-old female, who initially presented to the hospital on 01/28 with facial droop and slurred speech. The patient was approximately 30 hours prior to the arrival that had developed these symptoms. At this time, she was not a candidate for tPA. She had a significant right MCA stroke. She underwent a CTA, which indicated a right internal carotid complete occlusion. She was seen by CV Surgery. No recommendations since it was completely occluded. CV Surgery recommended that the patient will require followup for her left carotid, however, her left carotid appeared pretty patent at this time. The patient was evaluated for stroke workup. Brain MRI indicated acute anterior division of the right MCA infarct, occlusion of the right internal carotid, and small vessel ischemic changes. The patient also had an echocardiogram. Echo indicated EF of 60% to 65%. Left atrium is of normal size. The patient at this time was found to be in normal sinus; there was no abnormality noted. The patient was noted to have bilateral arm blood pressures that were abnormal, more than 20 mmHg abnormal. At this time, she underwent a CT dissection protocol. There was no appearance of aortic stenosis, occlusions, or aneurysm. However, she had some mild narrowing involving the origin of the celiac and the proximal right renal artery and also fatty liver disease. At this time, the patient was then discharged home. She will follow up with her primary. I have spent excessive amount of time explaining to the daughter that she will also need a city distribution clerk for a cardiac workup. Also, she will need a primary care, who will also set up her PT, Home Health. Also, blood pressure medications were discussed with this patient. Even though her hemoglobin A1c was 6.4, I have encouraged the patient to diet, exercise, and weight loss and also started her on metformin which will be started on Monday since she received contrast. HOME MEDICATIONS: Will be: 1. Aspirin 325 mg daily. 2. Protonix 40 mg daily. 3. Metformin 500 mg b.i.d., starting on Monday. 4. Lisinopril 20 mg twice a day. 5. Hydrochlorothiazide 25 mg daily. 6. Atorvastatin 40 mg q.h.s. 7. Aspirin 325 daily. 8. Norvasc 10 mg as needed for systolic greater than 170. PHYSICAL EXAMINATION: VITAL SIGNS: Temperature 98.8, respirations 20, 95% on room air. 108, 141/63. GENERAL: She is awake, alert, and oriented x3. Does not appear in distress. CV: S1, S2 present. No murmurs, rubs, gallops. NEUROLOGICAL FINDINGS. She has some little bit of ataxia. Otherwise, the patient is able to ambulate without a walker. She is able to eat; however, she has mild aspiration with thin liquids. I have told the daughter that she will require speech therapy also as soon as they set up with the primary care doctor. Job ID: [id number]
--- NOTE | 2020-02-03 08:20 | EEG ---
DATE OF SERVICE: 01/31/2020 ATTENDING PHYSICIAN: Pia Bhat MD REASON FOR CONSULTATION: Altered mental status. This EEG was performed using 24-channel [employer] video digital EEG machine with 24-disk electrodes. This was an extended 2 hours 6 minutes of inpatient video EEG recording. Digital analysis of the EEG was done for spike and seizure detection, which revealed no abnormalities. BACKGROUND: The posterior background rhythm is 8 to 8.5 Hz. Minimal reactivity is seen with eye opening and closure. HYPERVENTILATION: Not performed. PHOTIC STIMULATION: No significant response seen with photic stimulation. SLEEP: Drowsiness and sleep are observed. EEG DIAGNOSIS: Occasional irregular theta activity seen during the recording. CLINICAL INTERPRETATION: This EEG is consistent with mild generalized nonspecific cerebral dysfunction. Job ID: [id number]
== END 2020-01-31 18:43 | disposition home or self-care (01) | DRG 65 ==
LOC: ERS 18:39 → 2NO 21:40
PROVIDERS: ADMIT Internal Medicine; ATTEND Internal Medicine
DX: I63.312 Cerebral infarction due to thrombosis of left middle cerebral artery (principal); G81.91 Hemiplegia, unspecified affecting right dominant side; R47.81 Slurred speech; I10 Essential (primary) hypertension; Z20.828 Contact with and (suspected) exposure to other viral communicable diseases; R73.03 Prediabetes; R29.810 Facial weakness; I65.22 Occlusion and stenosis of left carotid artery; R27.0 Ataxia, unspecified; K76.0 Fatty (change of) liver, not elsewhere classified; M32.9 Systemic lupus erythematosus, unspecified; R29.703 NIHSS score 3; E66.9 Obesity, unspecified; Z68.35 Body mass index [BMI] 35.0-35.9, adult
CPT/HCPCS: 36415; 36416; 70496; 70498; 70551; 71275; 72191; 74175; 74230; 80048; 80053; 80061; 82550; 83036; 83735; 84484; 85025; 87635; 93005; 93306; 95712; 95819; 95957; 96374; 96375; C9113; J1650; J2405; J3010; Q9967; U0003